=== PATIENT | male | born 1955 | race Caucasian/White ===

== ENCOUNTER 2019-09-01 23:03 | Emergency (ER) | payer OTHER ==
[~2019-09-01] VITALS: Ht 170.2 cm; Wt 72.6 kg
[~2019-09-01 23:03] MED LIST: ATORVASTATIN CA40 MG ORAL; CLINDAMYCIN HC300 MG ORAL; CLOPIDOGREL75 MG ORAL; DIPHENHYDRAMINE25 M1 ORAL; LOSARTAN POTASS25 MG ORAL; METOPROLOL TART25 MG ORAL; OXYCODONE HCL5 M2 ORAL; PANTOPRAZOLE SO40 MG ORAL; PREDNISONE20 MG ORAL
--- NOTE | 2019-09-01 23:15 | NUR ---
ED Nurse Note: Recieved pt from [facility], here with c/o chest pain after drinking alcohol, pt is awake, alert and oriented x 4, slightly lsurred speech, pt states he had 3 shots of tequilla, pt has wrist band on from [facility] where he was released yesterday, no sob or labored breathing, pain level at 9/10, aching and continuous, pt has cardiac history, pt gowned and assisted to cardiac monitoring, MD at bedside, will resume care as ordered and continue to closely monitor.
--- NOTE | 2019-09-02 00:50 | Emergency Room Report ---
History of Present Illness General Chief Complaint: Chest Pain Source: Patient, Medical Record Present Illness HPI This 63-year-old male with a history of CAD with previous NC. Also history of stroke. He also has a history of alcoholism. He presents with chief complaint of chest pain. This is a ongoing problem. He has been in multiple hospitals for this. Most recently [facility]. Before that he was at [facility]. He said that he had an angiogram that showed no heart attack. No new stents placed. He was told that if he has chest pain to come back to the ER. He has been drinking tonight. He developed chest pain and called 911. Per EMS, he has multiple 911 call for the same thing. Patient said the pain started couple of hours ago. Now has no pain. Denies any other complaint. No radiation of the pain. No diaphoresis. No shortness of breath. Allergies: Coded Allergies: ASPIRIN (Verified Allergy, Unknown, 05/09/15) OXYCODONE (Unverified Allergy, Unknown, 06/29/15) Patient History Past Medical History: see triage record, old chart reviewed Past Surgical History: CABG, other Pertinent Family History: none Social History: Reports: alcohol use; Denies: smoking Immunizations: other Reviewed Nursing Documentation: PMH: Agreed; PSxH: Agreed Nursing Documentation-PMH Past Medical History: No History, Except For Hx Hypertension: Yes Hx Cancer: No Hx Gastrointestinal Problems: No Hx Neurological Problems: No Hx Cerebrovascular Accident: Yes - minor stroke Aug 2016, stent placed in brain Review of Systems Eye: Denies: eye pain, blurred vision ENT: Denies: ear pain, nose congestion, throat swelling Respiratory: Denies: cough, shortness of breath Cardiovascular: Reports: chest pain; Denies: palpitations Gastrointestinal: Denies: abdominal pain, diarrhea, nausea, vomiting Musculoskeletal: Denies: back pain, joint pain Skin: Denies: rash Neurological: Denies: headache, numbness Endocrine: Denies: increased thirst, increased urine Hematologic/Lymphatic: Denies: easy bruising All Other Systems: negative except mentioned in HPI Physical Exam Vital Signs Date Time Temp Pulse Resp B/P (MAP) Pulse Ox O2 Delivery O2 Flow Rate FiO2 09/01/19 23:05 98.2 74 14 109/74 (86) 99 Room Air Vitals normal Sp02 EP Interpretation: reviewed, normal General Appearance: well appearing, no apparent distress, alert, other - Intoxicated Head: normocephalic, atraumatic Eyes: bilateral eye PERRL, bilateral eye EOMI ENT: hearing grossly normal, normal pharynx Neck: full range of motion, supple, no meningismus Respiratory: chest non-tender, lungs clear, normal breath sounds Cardiovascular #1: regular rate, rhythm, no murmur Gastrointestinal: normal bowel sounds, non tender, no mass, no organomegaly, no bruit, non-distended Musculoskeletal: back normal, gait/station normal, normal range of motion Psychiatric: mood/affect normal Medical Decision Making Diagnostic Impression: Primary Impression: Chest pain Qualified Codes: R07.9 - Chest pain, unspecified Additional Impression: Acute alcoholic intoxication Qualified Codes: F10.920 - Alcohol use, unspecified with intoxication, uncomplicated ER Course This patient presents with exacerbation of his chronic pain. Suspect that he is want a place to sleep. He has been in multiple hospital. I saw discharge paperwork from [facility] [employer] and [facility]. Troponin negative. Patient promptly fell asleep. Will discharge when he is clinically sober. EKG Diagnostic Results Rate: normal Rhythm: NSR ST Segments: no acute changes Rhythm Strip Diag. Results EP Interpretation: yes Rate: 75 Rhythm: NSR, no PVC's, no ectopy Last Vital Signs Date Time Temp Pulse Resp B/P (MAP) Pulse Ox O2 Delivery O2 Flow Rate FiO2 09/01/19 23:05 98.2 74 14 109/74 (86) 99 Room Air Status: improved Disposition: HOME, SELF-CARE Condition: Stable Referrals: NOT CHOSEN IPA/MD,REFERRING (PCP) Patient Instructions: Nonspecific Chest Pain Additional Instructions: Abstain from alcohol. Follow-up with your doctor in 7 days. Return if symptoms worsen. Charlie Peck MD Sep 02, 2019 00:50
[2019-09-02 01:00] VITALS: BP 92/52
--- NOTE | 2019-09-02 02:00 | NUR ---
ED Nurse Note: Pt sleeping, arouses easily to verbal stimuli, v/s stabe, pt in NSR, denies pain, IV site patent, pt given warm blankets and will be d/c in am, pt is homeless, nad or changes noted, will continue to monitor.
[2019-09-02 02:30] VITALS: BP 104/57
--- NOTE | 2019-09-02 04:00 | NUR ---
ED Nurse Note: Pt continues to sleep, arouses easily to verbal stimulli, denies pain, iv site patent, remains on cardiac monitoring, nad noted.
[2019-09-02 04:30] VITALS: BP 113/56
--- NOTE | 2019-09-02 06:00 | NUR ---
ED Nurse Note: Pt awakened and preparing for discharge, pt is awake, alert and oriented x 4, pt has clean, dry and appropriate clothing, pt showed staf his money, pt has money and bus tokens, pt given info for shelters and f/u clinics, pt states he does not need that and he is going to [facility] now, he missed it yesterday due to being late, pt states is going now, pt is ambulatory, no pain, no sob, IV line removed without complications, pt given d/c instructions and f/u info, nad noted during d/c to [facility], all forms completed and signed.
[2019-09-02 06:30] VITALS: BP 111/61
[2019-09-02 06:35] VITALS: BP 113/56
== END 2019-09-02 06:35 | disposition home or self-care (01) ==
LOC: EDBD 23:03 → EDUNIT# 23:03 → EMR 23:26
DX: R07.9 Chest pain, unspecified (principal); F10.920 Alcohol use, unspecified with intoxication, uncomplicated; Z88.6 Allergy status to analgesic agent; Z95.1 Presence of aortocoronary bypass graft; I10 Essential (primary) hypertension; Z86.73 Personal history of transient ischemic attack (TIA), and cerebral infarction without residual deficits; Z95.9 Presence of cardiac and vascular implant and graft, unspecified; I25.10 Atherosclerotic heart disease of native coronary artery without angina pectoris; I25.2 Old myocardial infarction
CPT/HCPCS: 84484; Z7502; 99283

== ENCOUNTER 2019-11-20 18:50 | Emergency (ER) | payer OTHER ==
[~2019-11-20] VITALS: Ht 177.8 cm; Wt 72.6 kg
[~2019-11-20 18:50] MED LIST changes: +Pantoprazole Inj IV ONE
[2019-11-20 19:10] VITALS: BP 140/87
[2019-11-20] MEDS ORDERED: Pantoprazole Inj ONE (19:20)
[2019-11-20 19:43] LABS: BASOPHILS % (AUTO) 1.2 % (0.0-2.0); EOSINOPHILS % (AUTO) 1.4 % (0.0-3.0); HEMATOCRIT 44.2 % (42.0-52.0); HEMOGLOBIN 14.6 G/DL (14.2-18.0); MEAN CORPUSCULAR VOLUME 93 FL (80-99); MONOCYTES % (AUTO) 17.5 % (1.0-10.0); NEUTROPHILS % (AUTO) 52.9 % (45.0-75.0); PLATELET COUNT 254 K/UL (150-450); RED BLOOD COUNT 4.74 M/UL (4.70-6.10); RED CELL DISTRIBUTION WIDTH 12.6 % (11.6-14.8); WHITE BLOOD COUNT 5.8 K/UL (4.8-10.8)
[2019-11-20 19:59] LABS: ANION GAP 11 mmol/L (5-15); BLOOD UREA NITROGEN 24 mg/dL (7-18); CALCIUM 8.9 MG/DL (8.5-10.1); CARBON DIOXIDE 26 MMOL/L (21-32); CHLORIDE 105 MMOL/L (98-107); CREATININE 1.5 MG/DL (0.55-1.30); POTASSIUM 3.9 MMOL/L (3.5-5.1); SODIUM 142 MMOL/L (136-145)
[2019-11-20 20:03] LABS: ALANINE AMINOTRANSFERASE 27 U/L (12-78); ALBUMIN 3.6 G/DL (3.4-5.0); ALBUMIN/GLOBULIN RATIO 0.6 (1.0-2.7); ALKALINE PHOSPHATASE 98 U/L (46-116); ASPARTATE AMINO TRANSFERASE 28 U/L (15-37); BILIRUBIN,TOTAL 0.2 MG/DL (0.2-1.0)
[2019-11-20 21:32] VITALS: BP 132/82
--- NOTE | 2019-11-20 23:19 | Emergency Room Report ---
History of Present Illness General Chief Complaint: Alcohol Intoxication Source: Patient Present Illness HPI 63-year-old male presents ED for evaluation. [place]. Complaining of alcohol intoxication. Found on bus nauseous and vomiting. Blood noted in vomitus. Patient complaining of epigastric pain, burning, 8 out of 10, radiating through the chest. Denies nausea or vomiting at this time. Denies shortness of breath. No other aggravating relieving factors. Denies any other associated symptoms Allergies: Coded Allergies: ASPIRIN (Verified Allergy, Unknown, 05/09/15) OXYCODONE (Unverified Allergy, Unknown, 06/29/15) Patient History Past Medical History: HTN, CAD Past Surgical History: none Pertinent Family History: none Social History: Reports: alcohol use; Denies: smoking, drug use Immunizations: UTD Reviewed Nursing Documentation: PMH: Agreed; PSxH: Agreed Nursing Documentation-PMH Past Medical History: No History, Except For Hx Hypertension: Yes Hx Cancer: No Hx Gastrointestinal Problems: No Hx Neurological Problems: No Hx Cerebrovascular Accident: Yes - minor stroke Aug 2016, stent placed in brain Review of Systems All Other Systems: negative except mentioned in HPI Physical Exam Vital Signs Date Time Temp Pulse Resp B/P (MAP) Pulse Ox O2 Delivery O2 Flow Rate FiO2 11/20/19 18:36 98.1 81 19 140/87 (104) 98 Room Air Sp02 EP Interpretation: reviewed, normal General Appearance: no apparent distress, alert, GCS 15, non-toxic Head: normocephalic, atraumatic Eyes: bilateral eye normal inspection, bilateral eye PERRL ENT: hearing grossly normal, normal pharynx, no angioedema, normal voice Neck: full range of motion, supple/symm/no masses Respiratory: chest non-tender, lungs clear, normal breath sounds, speaking full sentences Cardiovascular #1: regular rate, rhythm, no edema Cardiovascular #2: 2+ carotid (R), 2+ carotid (L), 2+ radial (R), 2+ radial (L) , 2+ dorsalis pedis (R), 2+ dorsalis pedis (L) Gastrointestinal: normal bowel sounds, soft, non-distended, no guarding, no rebound, tenderness - epigastric Rectal: deferred Genitourinary: normal inspection, no CVA tenderness Musculoskeletal: back normal, normal range of motion, gait/station normal, non- tender Neurologic: alert, motor strength/tone normal, oriented x3, sensory intact, responsive, speech normal Psychiatric: judgement/insight normal, memory normal, mood/affect normal, no suicidal/homicidal ideation Reflexes: 3+ bicep (R), 3+ bicep (L), 3+ tricep (R), 3+ tricep (L), 3+ knee (R) , 3+ knee (L) Skin: no rash Lymphatic: no adenopathy Medical Decision Making Homeless Attestation I, The treating physician Dr. Lutz, have assessed and agrees that patient is medically stable for discharge to an outpatient disposition. Diagnostic Impression: Primary Impression: Acute alcoholic intoxication Qualified Codes: F10.920 - Alcohol use, unspecified with intoxication, uncomplicated Additional Impression: Gastritis Qualified Codes: K29.21 - Alcoholic gastritis with bleeding ER Course Hospital Course 63 yo M presents to ED c/o epigastric pain, chest pain, vomiting, ETOH use Differential diagnoses include: Psychosis, EtOH, drug abuse Clinical course patient placed on stretcher. On monitoring manager. After initial history and physical ordered labs, IV fluids, EKG, meds Labs reviewed-electrolytes okay, no leukocytosis, hemoglobin/hematocrit stable, ETOH elevated, trop negative EKG - NSR, no acute ischemic changes interpreted by me Patient observed on monitoring manager. Vital stable. Is now awake alert oriented x3. Will discharge to home. Safe for discharge for close outpatient follow-up. Homeless checklist completed i. I feel this is a highly complex case requiring extensive working including EKG/Rhythm strip, Xray/CT/US, Blood/urine lab work, repeat exams while in ED, and administration of strong opiates/narcotics for pain control, admission to hospital or close patient follow up. Diagnosis - acute alcohol intoxication, gastritis Stable and discharged to home with Rx Zofran, Pepcid. Followup with PMD. Return to ED if symptoms recur or worsen Labs Test 11/20/19 19:05 White Blood Count 5.8 K/UL (4.8-10.8) Red Blood Count 4.74 M/UL (4.70-6.10) Hemoglobin 14.6 G/DL (14.2-18.0) Hematocrit 44.2 % (42.0-52.0) Mean Corpuscular Volume 93 FL (80-99) Mean Corpuscular Hemoglobin 30.8 PG (27.0-31.0) Mean Corpuscular Hemoglobin Concent 33.1 G/DL (32.0-36.0) Red Cell Distribution Width 12.6 % (11.6-14.8) Platelet Count 254 K/UL (150-450) Mean Platelet Volume 6.3 FL (6.5-10.1) Neutrophils (%) (Auto) 52.9 % (45.0-75.0) Lymphocytes (%) (Auto) 27.0 % (20.0-45.0) Monocytes (%) (Auto) 17.5 % (1.0-10.0) Eosinophils (%) (Auto) 1.4 % (0.0-3.0) Basophils (%) (Auto) 1.2 % (0.0-2.0) Sodium Level 142 MMOL/L (136-145) Potassium Level 3.9 MMOL/L (3.5-5.1) Chloride Level 105 MMOL/L (98-107) Carbon Dioxide Level 26 MMOL/L (21-32) Anion Gap 11 mmol/L (5-15) Blood Urea Nitrogen 24 mg/dL (7-18) Creatinine 1.5 MG/DL (0.55-1.30) Estimat Glomerular Filtration Rate 47.4 mL/min (>60) Glucose Level 94 MG/DL (74-106) Calcium Level 8.9 MG/DL (8.5-10.1) Total Bilirubin 0.2 MG/DL (0.2-1.0) Aspartate Amino Transf (AST/SGOT) 28 U/L (15-37) Alanine Aminotransferase (ALT/SGPT) 27 U/L (12-78) Alkaline Phosphatase 98 U/L (46-116) Troponin I 0.000 ng/mL (0.000-0.056) Total Protein 9.3 G/DL (6.4-8.2) Albumin 3.6 G/DL (3.4-5.0) Globulin 5.7 g/dL Albumin/Globulin Ratio 0.6 (1.0-2.7) Lipase 693 U/L (73-393) Serum Alcohol 256 mg/dL EKG Diagnostic Results Rate: normal Rhythm: NSR ST Segments: no acute changes ASA given to the pt in ED: No Rhythm Strip Diag. Results EP Interpretation: yes Rhythm: NSR, no PVC's, no ectopy Chest X-Ray Diagnostic Results Chest X-Ray Diagnostic Results : Chest X-Ray Ordered: Yes # of Views/Limited/Complete: 1 View Indication: Chest Pain EP Interpretation: Yes Interpretation: no consolidation, no effusion, no pneumothorax, no acute cardiopulmonary disease Impression: No acute disease Electronically Signed by: Electronically signed by Raimundo Lutz MD Last Vital Signs Date Time Temp Pulse Resp B/P (MAP) Pulse Ox O2 Delivery O2 Flow Rate FiO2 11/20/19 21:32 98.3 79 19 132/82 99 Room Air Status: improved Disposition: HOME, SELF-CARE Condition: Stable Scripts Ondansetron Odt* (ZOFRAN ODT*) 4 Mg Tab.rapdis 4 MG BC EVERY 6 HOURS PRN for Nausea & Vomiting, #20 TAB 0 Refills Prov: Raimundo Lutz MD 11/20/19 Ranitidine Hcl* (ZANTAC*) 150 Mg Tablet 150 MG ORAL TWICE A DAY, #30 TAB Prov: Raimundo Lutz MD 11/20/19 Referrals: NON PHYSICIAN (PCP) Raimundo Lutz MD Nov 20, 2019 23:19
[2019-11-20] MEDS ORDERED: ONDANSETRON ODT4 MG BC (23:37)
[2019-11-20] MEDS ORDERED: RANITIDINE HCL150 MG ORAL (23:37)
[2019-11-20 23:50] VITALS: BP 130/77
[2019-11-21 01:30] VITALS: BP 129/84
[2019-11-21 01:40] LABS: APPEARANCE,URINE CLEAR; BILIRUBIN, URINE NEGATIVE (NEGATIVE); COLOR,URINE PALE YELLOW; GLUCOSE, URINE (UA) NEGATIVE (NEGATIVE); KETONES,URINE NEGATIVE (NEGATIVE); LEUKOCYTE ESTERASE ,URINE NEGATIVE (NEGATIVE); NITRITE,URINE NEGATIVE (NEGATIVE); PH,URINE 5 (4.5-8.0); PROTEIN,URINE 2+ (NEGATIVE); UROBILINOGEN,URINE NORMAL MG/DL (0.0-1.0)
--- NOTE | 2019-11-21 11:14 | Diagnostic Imaging Report ---
Indication: Shortness of breath Technique: One view of the chest Comparison: none Findings: Loop monitor overlies the left heart. The heart size is upper limits normal. There is some atelectasis at the left lung base. Lungs and pleural spaces are otherwise clear. Prior CABG again demonstrated Impression: No acute process
== END 2019-11-21 01:30 | disposition home or self-care (01) ==
LOC: EDBD 18:50 → EMR 19:00
DX: F10.129 Alcohol abuse with intoxication, unspecified (principal); K29.21 Alcoholic gastritis with bleeding; Z88.6 Allergy status to analgesic agent; I10 Essential (primary) hypertension; Z86.73 Personal history of transient ischemic attack (TIA), and cerebral infarction without residual deficits; I11.9 Hypertensive heart disease without heart failure; I25.10 Atherosclerotic heart disease of native coronary artery without angina pectoris
CPT/HCPCS: 36415; 71045; 80053; 81003; 83690; 84484; 85025; 93005; 96374; 96375; G0480; J2405; S0164; Z7502; 99284